=== PATIENT | female | born 1985 | race Two or more races ===

== ENCOUNTER 2020-07-20 12:16 | Emergency (ER) | payer OTHER ==
[2020-07-20 12:37] VITALS: BP 122/87; PULSE 90; RESP 17; TEMP 98.1
--- NOTE | 2020-07-20 13:16 | ED ---
General Adult HPI - General Source: patient, EMS, RN notes reviewed Mode of arrival: EMS Limitations: no limitations <Pako Rivera - Last Filed: 07/20/20 13:34> <Dayanara Ghotra - Last Filed: 07/21/20 13:32> - General Chief complaint: Anxiety Stated complaint: Anxiety Time Seen by Provider: 07/20/20 12:29 - History of Present Illness Initial comments: 35-year-old female with a past medical history of seizure disorder, chronic alcoholism presents to the emergency department for anxiety. Patient reports that she was supposed to go to [facility] today. Patient reports that she drank a complaint of vodka prior to going and then when she was being dropped off she started to feel very anxious. States she is afraid of the change. Patient reports that [facility] wanted her evaluated. States she was tachycardic at 112-116. Patient states she is feeling fine at this time.Patient has no other complaints at this time including shortness of breath, chest pain, abdominal pain, nausea or vomiting, headache, or visual changes. (Pako Rivera) Review of Systems ROS Other: All systems not noted in ROS Statement are negative. <Pako Rivera - Last Filed: 07/20/20 13:34> ROS Other: All systems not noted in ROS Statement are negative. <Dayanara Ghotra - Last Filed: 07/21/20 13:32> ROS Statement: Those systems with pertinent positive or pertinent negative responses have been documented in the HPI. Past Medical History Past Medical History: Seizure Disorder History of Any Multi-Drug Resistant Organisms: None Reported Past Surgical History: Orthopedic Surgery Past Psychological History: Anxiety Smoking Status: Current every day smoker Past Alcohol Use History: Abuse, Heavy Past Drug Use History: Marijuana <Pako Rivera - Last Filed: 07/20/20 13:34> General Exam Limitations: no limitations General appearance: alert, in no apparent distress Head exam: Present: atraumatic, normocephalic, normal inspection Eye exam: Present: normal appearance, PERRL, EOMI. Absent: scleral icterus, conjunctival injection, periorbital swelling ENT exam: Present: normal exam, mucous membranes moist Neck exam: Present: normal inspection, full ROM. Absent: tenderness, meningismus, lymphadenopathy Respiratory exam: Present: normal lung sounds bilaterally. Absent: respiratory distress, wheezes, rales, rhonchi, stridor Cardiovascular Exam: Present: regular rate, normal rhythm, normal heart sounds. Absent: systolic murmur, diastolic murmur, rubs, gallop, clicks GI/Abdominal exam: Present: soft, normal bowel sounds. Absent: distended, tenderness, guarding, rebound, rigid Neurological exam: Present: alert <Pako Rivera - Last Filed: 07/20/20 13:34> Course Vital Signs 07/20/20 12:30 Temperature 98.1 F Pulse Rate 90 Respiratory 17 Rate Blood Pressure 122/87 O2 Sat by Pulse 97 Oximetry EKG Findings - EKG Comments: EKG Findings:: Normal sinus rhythm, ventricular rate 71, AL interval 146, QTc 460 <Pako Rivera - Last Filed: 07/20/20 13:34> Medical Decision Making <Pako Rivera - Last Filed: 07/20/20 13:34> <Dayanara Ghotra - Last Filed: 07/21/20 13:32> - Medical Decision Making Patient's alcohol is 212. Patient is resting comfortably. Patient is ambulatory. is at bedside. Patient was monitored for over an hour in the emergency room. Patient has a steady gait and is clinically sober. Patient currently sitting up in bed on reevaluation. Marya KAYE spoke with [facility]. They will accept her back to their facility. Patient is medically cleared at this time. (Pako Rivera) I was available for consultation in the emergency department. The history and physical exam were done by the midlevel provider. I was consulted for this patients care. I reviewed the case with the midlevel provider and based on their presentation of the patient, I agree with the assessment, medical decision making and plan of care as documented. Chart was dictated using [employer] dictation software. Attempts were made to correct any dictation errors however some typographical errors may persist. Patient was seen during a national state of emergency due to the Covid-19 pandemic. (Dayanara Ghotra) Disposition Is patient prescribed a controlled substance at d/c from ED?: No Time of Disposition: 13:15 <Pako Rivera - Last Filed: 07/20/20 13:34> <Dayanara Ghotra - Last Filed: 07/21/20 13:32> Clinical Impression: Situational anxiety, Alcohol intoxication Disposition: HOME SELF-CARE Condition: Good Instructions (If sedation given, give patient instructions): Generalized Anxiety Disorder (ED) Referrals: Mike Lemos MD [Primary Care Provider] - 1-2 days
== END 2020-07-20 14:11 | disposition home or self-care (01) ==
LOC: EC 12:16
DX: F10.129 Alcohol abuse with intoxication, unspecified (principal); F41.8 Other specified anxiety disorders; F17.200 Nicotine dependence, unspecified, uncomplicated
CPT/HCPCS: 82075; 93005; 99284

== ENCOUNTER 2020-07-23 15:18 | Emergency (ER) | payer OTHER ==
[2020-07-23 15:30] VITALS: BP 145/94; PULSE 106; RESP 16; TEMP 98.3
--- NOTE | 2020-07-23 15:37 | ED ---
Recheck HPI - General Chief Complaint: Recheck/Abnormal Lab/Rx Stated Complaint: hemorrhoids Time Seen by Provider: 07/23/20 15:21 Source: patient, EMS Mode of arrival: EMS Limitations: altered mental status - History of Present Illness Initial Comments: Patient is 35-year-old female presenting to the emergency room chief complaint of hemorrhoids. States she's never had issues with hemorrhoids but over the last week she developed them. Patient reports she does have occasional hematochezia when she wipes or on top of the stool. She denies any cons tipation, nausea vomiting diarrhea. States it is painful to sit down and has a lot of discomfort with walking. Patient reports only alleviate factor is not applying any pressure to the region. - Related Data Previous Rx's Medication Instructions Recorded Phenyleph/Pramoxin/Glycr/W.pet 1 applic RECTAL BID #26 gram 07/23/20 [Preparation H Cream] Phenyleph/Pramoxin/Glycr/W.pet 1 applic RECTAL BID #26 gram 07/23/20 [Preparation H Cream] Allergies Allergy/AdvReac Type Severity Reaction Status Date / Time No Known Allergies Allergy Verified 07/23/20 16:01 Review of Systems ROS Statement: Those systems with pertinent positive or pertinent negative responses have been documented in the HPI. ROS Other: All systems not noted in ROS Statement are negative. Past Medical History Past Medical History: Seizure Disorder History of Any Multi-Drug Resistant Organisms: None Reported Past Surgical History: Orthopedic Surgery Past Psychological History: Anxiety Smoking Status: Current every day smoker Past Alcohol Use History: Abuse, Heavy Past Drug Use History: Marijuana General Exam Limitations: no limitations General appearance: alert, in no apparent distress Head exam: Present: atraumatic, normocephalic, normal inspection Eye exam: Present: normal appearance, PERRL, EOMI Pupils: Present: normal accommodation ENT exam: Present: normal exam, normal oropharynx, mucous membranes moist Neck exam: Present: normal inspection, full ROM Respiratory exam: Present: normal lung sounds bilaterally. Absent: respiratory distress, wheezes Cardiovascular Exam: Present: regular rate, normal rhythm, normal heart sounds GI/Abdominal exam: Present: soft. Absent: distended, tenderness, guarding Rectal exam: Present: hemorrhoids (External, nonthrombosed hemorrhoids.) Extremities exam: Present: normal inspection, full ROM. Absent: tenderness Back exam: Present: normal inspection, full ROM. Absent: tenderness Neurological exam: Present: alert, oriented X3 Psychiatric exam: Present: normal affect, normal mood Skin exam: Present: warm, dry, intact, normal color Course Vital Signs 07/23/20 07/23/20 15:21 16:00 Temperature 98.3 F 98.3 F Pulse Rate 106 H 106 H Respiratory 16 16 Rate Blood Pressure 145/94 145/94 O2 Sat by Pulse 98 98 Oximetry Medical Decision Making - Medical Decision Making Patient is a 35-year-old female presenting to the emergency department chief complaint of hemorrhage. Exam patient has external hemorrhoids. Nonthrombosed. No I and D required at this time. Patient discharged with preparation H. Advised to follow-up with a GI specialist. Return parameters discussed with patient. She is understanding and agreeable. Case discussed with physician. Disposition Clinical Impression: External hemorrhoid Disposition: HOME SELF-CARE Condition: Stable Instructions (If sedation given, give patient instructions): Hemorrhoids (DC), Hemorrhoidectomy (DC) Additional Instructions: Follow-up with a GI specialist. Use Preparation H and absence salt. Return to emergency department if symptoms worsen. Prescriptions: Phenyleph/Pramoxin/Glycr/W.pet [Preparation H Cream] 1 applic RECTAL BID #26 gram Phenyleph/Pramoxin/Glycr/W.pet [Preparation H Cream] 1 applic RECTAL BID #26 gram Is patient prescribed a controlled substance at d/c from ED?: No Referrals: Mike Lemos MD [Primary Care Provider] - 1-2 days Lois Finn MD [STAFF PHYSICIAN] - 1-2 days Time of Disposition: 15:58
== END 2020-07-23 16:03 | disposition home or self-care (01) ==
LOC: EC 15:18
DX: K64.4 Residual hemorrhoidal skin tags (principal); F17.200 Nicotine dependence, unspecified, uncomplicated; F10.10 Alcohol abuse, uncomplicated
CPT/HCPCS: 99283